=== PATIENT | female | born 1955 | race Caucasian/White ===

== ENCOUNTER 2018-04-10 17:12 | Emergency (ER) | payer OTHER ==
[~2018-04-10] VITALS: Ht 154.9 cm; Wt 63.5 kg
[~2018-04-10 17:12] MED LIST: ADVAIR HFA 230M12 GM INH; ASPIR 8181 MG PO; BLACK COHOSH40 M1 PO; BROVANA15 MCG/2 M INH; CALCIUM 600 +1 EAC1 PO; CEFDINIR300 MG PO; COQ-10100 MG PO; DUONEB 2.5-0.5 M3 ML INH; FISH OIL 1,001000 M2 PO; FLAX OIL1000 MG PO; FOLIC ACID 40400 MC1 PO; IBUPROFEN 600600 M1 PO; IRON325 PO; LEVAQUIN 500 M500 M2 PO; MAGOX 400400 MG PO; MULTIPLE VITAM1 EAC3 PO; NICODERM CQ1 EAC1 TD; NOHOMEMEDICATIONS; NORCO 5-325 TA1 EACH PO; OSTEO BI-FLEX1 EAC1 PO; PAXIL10 MG PO; PAXIL40 MG PO; PREDNISONE 10 M10 M1 PO; PREDNISONE 10 M10 MG PO; PREDNISONE10 MG PO; PROBIOTIC1 EAC1 PO; PROTONIX40 M1 PO; SENOKOT-S TABL1 EACH PO; SINGULAIR 10 MG10 M1 PO; SPIRIVA INH; TRAZODONE HCL50 MG PO; TUMS PO; VICODIN 5-5001 EACH PO; VITAMIN B-12500 MCG PO; VITAMIN D2000 UNIT PO; VITAMIN E400 UNIT PO; VITAMINC500 PO; XANAX 0.25 MG0.25 MG PO; ZINC CHELATE50 MG PO; ZINC SULFATE 2220 M1 PO; ZOCOR 20 MG TAB20 M1 PO; ZOCOR 20 MG TAB20 MG PO; ZOCOR20 MG PO
[2018-04-10 17:47] LABS: URINE BILIRUBIN NEGATIVE (Negative); URINE BLOOD NEGATIVE (Negative); URINE CLARITY CLEAR; URINE COLOR YELLOW; URINE GLUCOSE-RANDOM NEGATIVE (Negative); URINE KETONES NEGATIVE (Negative); URINE NITRITE-REFLEX NEGATIVE (Negative); URINE PROTEIN NEGATIVE (Negative); URINE UROBILINOGEN 0.2 E.U./dl (0.2-1.0)
[2018-04-10 17:49] LABS: URINE LEUKOCYTES-REFLEX 3+ (Negative)
[2018-04-10] MEDS ORDERED: ZONEGRAN25 MG PO (17:56)
[2018-04-10] MEDS ORDERED: KEPPRA250 MG PO (17:56)
[2018-04-10 18:08] LABS: BACTERIA-REFLEX 1-9 Few /HPF (None Seen); CASTS None Seen /LPF (None Seen); SQUAMOUS 0-3 Few /LPF (0-3); URINE RBC 3-10 Few /HPF (0-2)
[2018-04-10 18:09] LABS: CRYSTALS None Seen /LPF (None Seen)
[2018-04-10 18:31] LABS: ABSOLUTE BASOPHILS 0.1 thou/uL (0.0-0.2); ABSOLUTE EOSINOPHILS 0.4 thou/uL (0.0-0.7); ABSOLUTE LYMPHOCYTES 1.6 thou/uL (0.8-5.3); ABSOLUTE MONOCYTES 0.6 thou/uL (0.0-1.2); ABSOLUTE NEUTROPHILS 5.4 thou/uL (1.6-8.1); EOSINOPHILS 5.4 %; HEMATOCRIT 36.5 % (37.0-47.0); HEMOGLOBIN 12.4 gm/dL (12.0-15.0); LYMPHOCYTES 19.4 %; MCH 31.2 pg (26.0-34.0); MCHC 34.1 g/dL (28.0-37.0); MCV 91.6 fL (80.0-100.0); MONOCYTES 7.7 %; MPV 6.8 fl. (7.2-11.1); NUCLEATED RBCS 0 /100WBC; PLATELET COUNT* 345 thou/uL (150-400); POLYS 66.5 %; RBC 3.98 mil/uL (4.20-5.00); RDW-CV 13.4 % (10.5-14.5); WBC 8.1 thou/uL (4.0-11.0)
[2018-04-10 18:42] LABS: CALCIUM 9.1 mg/dL (8.5-10.1); CREATININE 0.8 mg/dL (0.6-1.3); POTASSIUM 4.8 mmol/L (3.5-5.1)
[2018-04-10 18:48] LABS: ALBUMIN 3.3 g/dL (3.4-5.0); TOTAL BILIRUBIN 0.8 mg/dL (<0.1-1.0); TOTAL PROTEIN 7.5 g/dL (6.4-8.2)
[2018-04-10] MEDS ORDERED: BACTRIM DS TAB1 EACH PO (18:53)
[2018-04-10 19:01] VITALS: BP 103/70
== END 2018-04-10 19:02 | disposition home or self-care (01) ==
LOC: M.ERS 17:12
PROVIDERS: Physician Assistant
DX: R21 Rash and other nonspecific skin eruption (principal); N39.0 Urinary tract infection, site not specified; F32.9 Major depressive disorder, single episode, unspecified; J44.9 Chronic obstructive pulmonary disease, unspecified

== ENCOUNTER → 2018-05-28 | Outpatient (CLI) | payer OTHER ==
[~2018-05-28] MED LIST changes: +BACTRIM DS TAB1 EACH PO; +KEPPRA250 MG PO; +ZONEGRAN25 MG PO
== END ==
LOC: M.RAD 09:00
DX: Z12.31 Encounter for screening mammogram for malignant neoplasm of breast (principal)

== ENCOUNTER → 2019-06-03 | Outpatient (CLI) | payer OTHER | LOC: M.RAD 09:30 | DX: Z12.31 Encounter for screening mammogram for malignant neoplasm of breast (principal) ==

== ENCOUNTER → 2019-10-17 | Outpatient (CLI) | payer OTHER | LOC: M.RAD 14:12 | DX: M85.80 Other specified disorders of bone density and structure, unspecified site (principal); Z78.0 Asymptomatic menopausal state ==

== ENCOUNTER → 2021-02-12 | Outpatient (CLI) | payer OTHER ==
[~2021-02-12] MED LIST changes: +ADVAIR 250-501 EACH INH; +ALENDRONATE SOD35 MG PO; +B-COMPLEX WIT400 MCG PO; +COENZYME Q-10200 MG PO; +FISH OIL 1,001000 M3 PO; +INCRUSE ELLI62.5 MCG INH; +INTRAROSA6.5 MG VAG; +MAGNESIUM250 M1 PO; +N-ACETYL-L-CYS600 MG PO; +OXYGEN NASAL; +PROBIOTIC1 EAC7 PO; +PROZAC20 M1 PO; +ZYRTEC10 M4 PO
--- NOTE | 2021-02-12 17:13 | CARDNUC ---
[place] [address] CARDIAC NUCLEAR IMAGING REPORT Name: EMILEE SANCHEZ BRE Room: [facility]#: [id number] Admission: 02/12/21 Attend Phys: Lelo Kaur, Discharge: Date of : 59 Date of Service: 02/12/21 1713 Report #: [id number] THIS REPORT FOR: cc: Ting Montalvo Linda J. DO Liston, Michael J. MD [facility] ~ APPROVED REPORT Imaging Protocol: Rest Tc-99m/Stress Tc-99m 1 day Study performed: 02/12/2021 09:35:55 Indication: Chest pain, Dyspnea, Palpitations Patient Location: Out-Patient Stress Tech: Samia June Stress Nurse: Adalgisa Montanez RN NM Tech:SHYANN Mi Ht: 4 ft 11 in Wt: 136 lbs BSA: 1.57 m2 HR: 82 bpm BP: 118/73 mmHg BMI: 27.46 Medical History Medical History: Current Smoker, angina, dyspnea, HX PE, palpitations, COPD, 02 2L NC HS, HLD, FHX CAD. Medications: ASA 81, SIMVASTATIN, MG 250 MG, 02 2L NC HS Allergies: CHANTIX Cardiac Risk Factors: Age, Current Smoker, Hyperlipidemia, FHX of CAD, DYSPNEA, COPD. Previous Cardiac Procedures: None Pretest Chest Pain Characteristics: No chest pain Exercise History: Indeterminate Physical Disabilities: UNSTEADY GAIT, COPD. Meds Held (24 hrs): None Resting Data Rest SPECT myocardial perfusion imaging was performed in supine position 30 minutes following the intravenous injection of 9.0 mCi of Tc-99m Sestamibi. Time of rest injection: 819 Date: 02/12/2021 The images were gated to evaluate regional wall motion and calculate left ventricular ejection fraction. Administration Route: IV Administration Site: [place] [address] CARDIAC NUCLEAR IMAGING REPORT Name: DANIELEMILEE BRE [id number] Admission: 02/12/21 Attend Phys: Lelo Kaur, Discharge: Date of : 59 Date of Service: 02/12/21 1713 Report #: [id number] Pharmacologic Stress Pharmacologic stress test was performed by injecting Regadenoson 0.4 mg IV push over 10-15 seconds immediately followed by the intravenous injection of 31.3 mCi of Tc-99m Sestamibi. Time of stress injection: 944 Date: 02/12/2021 Administration Route: IV Administration Site: Right Hand Gated Stress SPECT was performed 40 minutes after stress injection. The images were gated to evaluate regional wall motion and calculate left ventricular ejection fraction. Prone imaging was performed. Stress Test Details Stress Test: Pharmacologic stress was paired with low level exercise. Reason for pharmacologic stress test: UNSTEADY GAIT, COPD.. HR Max Heart Rate (APMHR): 157 bpm Resting HR: 82 bpm Target HR (85% APMHR): 133 bpm Max HR Achieved: 125 bpm % of APMHR: 79 Recovery HR: 102 bpm BP Resting BP: 118/73 mmHg Max BP: 152/79 mmHg Recovery BP: 118/75 mmHg ECG Resting ECG: Sinus Rhythm Stress ECG: Sinus Tachycardia ST Change: None Arrhythmia: None Recovery ECG: Sinus Rhythm Recovery ST Change: None Recovery Arrhythmia: None Clinical Reason for Termination: Completed protocol Stress Symptoms: DYSPNEA, FATIGUE, LIGHTHEADEDNESS. Exercise duration: 4 min 00 sec Exercise capacity: 2.30 METs The patient tolerated Lexiscan infusion without significant cardiac [place] [address] CARDIAC NUCLEAR IMAGING REPORT Name: EMILEE SANCHEZ Room: [facility]#: [id number] Admission: 02/12/21 Attend Phys: Lelo Kaur, Discharge: Date of : 59 Date of Service: 02/12/21 1713 Report #: [id number] A 65 YEAR OLD FEMALE PRESENTED FOR A WALKING LEXISCAN. TEST WELL TOLERATED WITH EXTREME DYSPNEA. RECOVERY UNREMARKABLE. PATIENT WAS STABLE AND STATED SHE FELT GOOD WHEN ESCORTED TO NUCLEAR MEDICINE FOR IMAGING. Stress ECG Conclusion The baseline twelve-lead EKG shows sinus rhythm without significant ST segment or T wave abnormality. EKGs obtained during and post Lexiscan infusion show sinus rhythm and sinus tachycardia with no significant ST segment or T wave changes when compared to baseline. Study Quality Study: Good Artifact: No artifact Study Data At rest, the left ventricular ejection fraction was 74%.. Post stress, the left ventricular ejection was 80%.. TID = 0.86. Perfusion Perfusion images obtained at rest and post Lexiscan stress show uniform uptake of the radioisotope throughout the myocardium. There were no defects to suggest infarct or ischemia. Wall Motion Normal left ventricular wall motion. Nuclear Conclusion ECG Findings: negative for ischemia Clinical Findings: negative for ischemia Nuclear Findings: negative for ischemia Exercise Capacity: not assessed Left Ventricular Function: normal Risk Study: low Myocardial perfusion images show no defect to suggest infarct or ischemia. Left ventricular systolic function is normal on gated studies. This is a low risk study. <Conclusion> The baseline twelve-lead EKG shows sinus rhythm without significant ST segment or T wave abnormality. E[place]Gs [place] [address] CARDIAC NUCLEAR IMAGING REPORT Name: DANIELEMILEE SELLERS BRE Room: [facility] Lizzie#: [id number] Admission: 02/12/21 Attend Phys: Lelo Kaur, Discharge: Date of : 59 Date of Service: 02/12/21 1713 Report #: [id number] Lexiscan infusion show sinus rhythm and sinus tachycardia with no significant ST segment or T wave changes when compared to baseline. <ELECTRONICALLY SIGNED> By: Samuel Oliveira MD, FAC 02/12/211712 12 12 Samuel Oliveira MD, FACC /INF
== END ==
LOC: M.NUC 02-04 15:10
PROVIDERS: ATTEND Internal Medicine
DX: R07.9 Chest pain, unspecified (principal)

== ENCOUNTER → 2021-08-29 | Outpatient (CLI) | payer OTHER ==
[~2021-08-29] VITALS: Ht 152.4 cm; Wt 61.2 kg
[2021-08-29 09:55] VITALS: BP 113/76
== END ==
LOC: M.CT 08-21 15:54 → M.LAB 08:41 → M.CT 10:00
PROVIDERS: ATTEND Internal Medicine
DX: I25.10 Atherosclerotic heart disease of native coronary artery without angina pectoris (principal); J98.4 Other disorders of lung; R07.9 Chest pain, unspecified

== ENCOUNTER → 2021-08-29 | Outpatient (CLI) | payer OTHER ==
[2021-08-29 09:04] LABS: CREATININE 0.8 mg/dL (0.6-1.3)
== END ==
LOC: M.CT 08:36
PROVIDERS: ATTEND Internal Medicine
DX: Z01.812 Encounter for preprocedural laboratory examination (principal); R07.9 Chest pain, unspecified; Z13.6 Encounter for screening for cardiovascular disorders; I25.10 Atherosclerotic heart disease of native coronary artery without angina pectoris; J43.9 Emphysema, unspecified